=== PATIENT | male | born 1945 | race Caucasian/White ===

== ENCOUNTER → 2018-05-31 | Outpatient (CLI) | payer MEDICARE ==
[~2018-05-31] MED LIST: REGADENOSON 0.4 MG/5 ML PF SYG IVP SCH
== END | disposition home or self-care (01) ==
LOC: SHCH 08:58
PROVIDERS: ATTEND Internal Medicine Cardiovascular Disease
DX: I11.0 Hypertensive heart disease with heart failure (principal); I50.22 Chronic systolic (congestive) heart failure
CPT/HCPCS: 78452; 93017; 96374; A9500 ×2; J2785

== ENCOUNTER 2018-06-17 07:12 | Day surgery (SDC) | payer MEDICARE ==
[2018-06-15 11:17] VITALS: BP 141/74
[2018-06-15 11:27] LABS: BASOPHILS % (AUTO) 0.8 % (0.0-5.0); EOSINOPHILS % (AUTO) 1.4 % (0.0-8.0); HEMATOCRIT 36.2 % (42-54); LYMPHOCYTES % (AUTO) 22.2 % (21.0-51.0); MEAN CORPUSCULAR HGB CONC 33.9 g/dL (32.0-36.0); MEAN CORPUSCULAR VOLUME 88.5 fL (79-99); MONOCYTES % (AUTO) 10.1 % (3.0-13.0); NEUTROPHILS % (AUTO) 65.5 % (40.0-77.0); PLATELET COUNT (AUTO) 240 K/uL (130-400); RED BLOOD CELL COUNT(AUTO) 4.09 MIL/uL (4.50-6.20); RED CELL DISTRIBUTION WIDTH 14.5 % (11.0-15.5); WHITE BLOOD COUNT (AUTO) 5.9 K/uL (4.8-10.8)
[2018-06-15 11:33] LABS: APPEARANCE,URINE CLEAR (CLEAR); BILIRUBIN,URINE NEGATIVE (NEGATIVE); COLOR,URINE YELLOW (YELLOW); GLUCOSE, URINE (UA) 100 mg/dL (NEGATIVE); KETONES,URINE NEGATIVE (NEGATIVE); LEUKOCYTE ESTERASE ,URINE NEGATIVE (NEGATIVE); NITRATE,URINE NEGATIVE (NEGATIVE); OCCULT BLOOD,URINE TRACE-INTACT (NEGATIVE); PROTEIN,URINE NEGATIVE (NEGATIVE); UROBILINOGEN,URINE 0.2 mg/dL (0.2-1.0)
[2018-06-15 11:35] LABS: CREATININE 1.8 mg/dL (0.5-1.5); POTASSIUM 4.4 mmol/L (3.5-5.1)
[2018-06-15 11:41] LABS: BACTERIA,URINE None Seen /HPF (None Seen); RBC,URINE 0-1 /HPF (0-1); SQUAMOUS EPITHELIAL CELL,UR 0-2 /HPF (0-2); WBC,URINE 0-1 /HPF (0-1)
[2018-06-15 11:42] LABS: INR 1.89 (0.85-1.15); PARTIAL THROMBOPLASTIN TIME 37.4 SEC (26.3-35.5); PROTHROMBIN TIME 19.6 SEC (9.6-11.6)
--- NOTE | 2018-06-16 14:52 | NUR ---
ABNORMAL LABS REPORTED ABNORMAL LABS TO JV AGGARWAL FOR DR. MOROCHO. ORDERS TO REDRAW PT, PTT, INR, BMP. HYDRATION NS 75ML ON ARRIVAL TO DAY PATIENT.
[~2018-06-17] VITALS: Ht 185.4 cm; Wt 145.1 kg
[2018-06-17] VITALS (11 sets, daily range): BP systolic 120–159; BP diastolic 55–90
[~2018-06-17 07:12] MED LIST changes: +ATOR10TA PO; +CARV12.580 PO; +EZET10 PO; +FENO160T41 PO; +FURO-151 PO; +GLIP5TAB11 PO; +LISI1TAB9 PO; +METF-446 PO; +OMEP20TA25 PO; +POTA-79 PO; -REGADENOSON 0.4 MG/5 ML PF SYG IVP SCH; +SODIUM CHLORIDE 0.9% 1000ML 1,000 ML IV SCH; +SOTA120T PO; +WARF7.5T49 PO
[2018-06-17] MEDS ORDERED: SODIUM CHLORIDE 0.9% 1000ML 1,000 ML IV SCH (08:00)
[2018-06-17 08:39] LABS: CREATININE 1.7 mg/dL (0.5-1.5); POTASSIUM 4.4 mmol/L (3.5-5.1)
[2018-06-17 09:01] LABS: INR 1.22 (0.85-1.15); PARTIAL THROMBOPLASTIN TIME 29.8 SEC (26.3-35.5); PROTHROMBIN TIME 12.8 SEC (9.6-11.6)
[2018-06-17] MEDS ORDERED: LOVENOX (10:42)
[2018-06-17] MEDS ORDERED: LIDOCAINE HCL 2% 20ML ONE (12:49)
[2018-06-17] MEDS ORDERED: IOHEXOL-350 50ML VIAL IV ONE (12:49)
[2018-06-17] MEDS ORDERED: HEPARIN SODIUM 1000UNIT/ML 10ML VIAL ONE (12:49)
[2018-06-17] MEDS ORDERED: IOHEXOL 350 MG/ML 100ML INFUS..BTL IV ONE (12:49)
[2018-06-17] MEDS ORDERED: ACETAMINOPHEN-CODEINE 300/30MG TAB PO PRN ×2 (14:15)
[2018-06-17] MEDS ORDERED: DEXTROSE 5 %-0.45 % NACL 1,000 ML IV SCH (14:15)
[2018-06-17] MEDS ORDERED: AMLO5TAB9 PO (19:07)
== END 2018-06-17 20:20 | disposition home or self-care (01) ==
LOC: DAH 07:12
PROVIDERS: ATTEND Internal Medicine Cardiovascular Disease
DX: I25.118 Atherosclerotic heart disease of native coronary artery with other forms of angina pectoris (principal); I48.91 Unspecified atrial fibrillation; Z79.899 Other long term (current) drug therapy; Z98.890 Other specified postprocedural states; E11.9 Type 2 diabetes mellitus without complications; I11.0 Hypertensive heart disease with heart failure; I50.42 Chronic combined systolic (congestive) and diastolic (congestive) heart failure; Z68.41 Body mass index [BMI] 40.0-44.9, adult
CPT/HCPCS: 36415 ×2; 71045; 80048 ×2; 81001; 82948 ×2; 85025; 85610 ×2; 85730 ×2; 93005; 93458; A4606; C1894; J1644 ×2; J3490; J7030; Q9965; Q9967 ×2

== ENCOUNTER → 2019-05-04 | Outpatient (CLI) | payer MEDICARE ==
[~2019-05-04] MED LIST changes: +AMLO5TAB9 PO; -EZET10 PO; +EZET10TA13 PO; +LISI1TAB32 PO; -LISI1TAB9 PO; -SODIUM CHLORIDE 0.9% 1000ML 1,000 ML IV SCH
[2019-05-04 08:45] LABS: INR 2.62 (0.85-1.15); PROTHROMBIN TIME 26.5 SEC (9.6-11.6)
== END | disposition home or self-care (01) ==
LOC: LAB 05-03 10:37
PROVIDERS: ATTEND Family Medicine
DX: I48.0 Paroxysmal atrial fibrillation (principal); I21.9 Acute myocardial infarction, unspecified
CPT/HCPCS: 36415; 85610; 93005

== ENCOUNTER 2020-03-14 13:33 | Emergency (ER) | payer MEDICARE ==
[~2020-03-14 13:33] MED LIST changes: +AMLO-257 PO; -AMLO5TAB9 PO
[2020-03-14] MEDS ORDERED: ACETAMINOPHEN-CODEINE 300/30MG TAB ONE (14:23)
[2020-03-14] MEDS ORDERED: KETOROLAC TROMETHAMINE 30MG/ML ONE (14:23)
[2020-03-14] MEDS ORDERED: DEXAMETHASONE SOD PHOSPHATE 10MG/ML 1ML VIAL ONE (14:23)
== END 2020-03-14 14:54 | disposition home or self-care (01) ==
LOC: EDH 13:33
DX: M72.2 Plantar fascial fibromatosis (principal); I10 Essential (primary) hypertension; E11.9 Type 2 diabetes mellitus without complications; E78.00 Pure hypercholesterolemia, unspecified
CPT/HCPCS: 96372 ×2; 99284; J1100; J1885